=== PATIENT | female | born 1950 | race Caucasian/White ===

== ENCOUNTER → 2020-01-18 10:20 | Outpatient (BNVA) | payer MEDICARE, BC, SELFPAY | PROVIDERS: Visit Provider Family Medicine | DX: E03.9 Hypothyroidism, unspecified (principal) | CPT/HCPCS: 84443 ==

== ENCOUNTER → 2020-05-17 10:46 | Outpatient (BNVA) | payer MEDICARE, BC, SELFPAY | PROVIDERS: Visit Provider Family Medicine | DX: R53.83 Other fatigue (principal); E78.5 Hyperlipidemia, unspecified; F32.9 Major depressive disorder, single episode, unspecified; E03.9 Hypothyroidism, unspecified; Z79.899 Other long term (current) drug therapy | CPT/HCPCS: 80053; 80061; 82306; 82607; 84443; 85025 ==

== ENCOUNTER → 2020-09-20 11:45 | Outpatient (BNVA) | payer MEDICARE, BC, SELFPAY | PROVIDERS: Visit Provider Nurse Practitioner Family | DX: Z11.59 Encounter for screening for other viral diseases (principal); Z20.828 Contact with and (suspected) exposure to other viral communicable diseases; J06.9 Acute upper respiratory infection, unspecified | CPT/HCPCS: 87635 ==

== ENCOUNTER → 2021-04-05 09:11 | Outpatient (BNVA) | payer MEDICARE, BC, SELFPAY | PROVIDERS: Visit Provider Family Medicine | DX: E78.2 Mixed hyperlipidemia (principal); E03.9 Hypothyroidism, unspecified; I10 Essential (primary) hypertension | CPT/HCPCS: 80053; 80061; 84443; 85025 ==

== ENCOUNTER → 2021-10-23 13:16 | Outpatient (BNVA) | payer MEDICARE, BC, SELFPAY | PROVIDERS: Visit Provider Family Medicine | DX: E78.2 Mixed hyperlipidemia (principal); I10 Essential (primary) hypertension; R53.83 Other fatigue; E03.9 Hypothyroidism, unspecified | CPT/HCPCS: 80053; 80061; 82306; 84443; 85025 ==

== ENCOUNTER → 2022-01-23 08:47 | Outpatient (BNVA) | payer MEDICARE, BC, SELFPAY | PROVIDERS: Visit Provider Family Medicine | DX: E55.9 Vitamin D deficiency, unspecified (principal); E03.9 Hypothyroidism, unspecified; E78.5 Hyperlipidemia, unspecified; I10 Essential (primary) hypertension | CPT/HCPCS: 80053; 80061; 82306; 84443; 85025 ==

== ENCOUNTER → 2022-02-26 15:29 | Outpatient (BNVA) | payer MEDICARE, BC, SELFPAY | PROVIDERS: Visit Provider Nurse Practitioner Family | DX: M79.672 Pain in left foot (principal); M25.572 Pain in left ankle and joints of left foot; M84.475A Pathological fracture, left foot, initial encounter for fracture | CPT/HCPCS: 73610; 73630 ==

== ENCOUNTER 2022-03-05 13:36 | Outpatient (CLI) | payer MEDICARE, BC, SELFPAY ==
--- NOTE | 2022-03-05 13:44 | MM_ITS ---
WS: [email or web address] BILATERAL 3D TOMOSYNTHESIS DIGITAL SCREENING MAMMOGRAPHY WITH CAD CLINICAL INFORMATION: SCREENING HISTORY: Screening mammogram. No current complaints. COMPARISON: TECHNIQUE: Bilateral CC and MLO views. FINDINGS: The breasts are composed of heterogeneous fibroglandular density tissue, which can limit the detectio n of small underlying mass lesions. Punctate and lucent centered calcifications. No suspicious mass, asymmetry, calcifications, or architectural distortion. No evidence of malignancy. MM/[place] [id number] IMPRESSION: BI-RADS: 2-Benign FOLLOW UP: 1 Year Follow-up Recommend return to annual screening mammography.
== END 2022-03-05 13:37 | disposition home or self-care (01) ==
PROVIDERS: Visit Provider Family Medicine
DX: S92.352A Displaced fracture of fifth metatarsal bone, left foot, initial encounter for closed fracture (principal); W10.9XXA Fall (on) (from) unspecified stairs and steps, initial encounter; Z87.891 Personal history of nicotine dependence; Z12.31 Encounter for screening mammogram for malignant neoplasm of breast
CPT/HCPCS: 73630; 77063; 77067; 99204

== ENCOUNTER → 2022-03-27 08:17 | Outpatient (BNVA) | payer MEDICARE, BC, SELFPAY | PROVIDERS: Visit Provider Podiatrist Foot & Ankle Surgery | DX: S92.355D Nondisplaced fracture of fifth metatarsal bone, left foot, subsequent encounter for fracture with routine healing (principal); W10.9XXD Fall (on) (from) unspecified stairs and steps, subsequent encounter; Z87.891 Personal history of nicotine dependence | CPT/HCPCS: 73630; 99214 ==

== ENCOUNTER → 2022-06-27 09:14 | Outpatient (BNVA) | payer MEDICARE, BC, SELFPAY | PROVIDERS: Visit Provider Podiatrist Foot & Ankle Surgery | DX: W19.XXXD Unspecified fall, subsequent encounter (principal); S92.355D Nondisplaced fracture of fifth metatarsal bone, left foot, subsequent encounter for fracture with routine healing | CPT/HCPCS: 73630; 99214 ==

== ENCOUNTER → 2022-08-08 11:21 | Outpatient (BNVA) | payer MEDICARE, BC, SELFPAY | PROVIDERS: PCP Family Medicine; Visit Provider Podiatrist Foot & Ankle Surgery | DX: S92.355D Nondisplaced fracture of fifth metatarsal bone, left foot, subsequent encounter for fracture with routine healing (principal); W10.9XXD Fall (on) (from) unspecified stairs and steps, subsequent encounter | CPT/HCPCS: 73630; 99213; 99214 ==

== ENCOUNTER → 2022-08-16 08:33 | Outpatient (BNVA) | payer MEDICARE, BC, SELFPAY | PROVIDERS: PCP Family Medicine; Visit Provider Family Medicine | DX: I10 Essential (primary) hypertension (principal); E55.9 Vitamin D deficiency, unspecified; E03.9 Hypothyroidism, unspecified; E78.5 Hyperlipidemia, unspecified | CPT/HCPCS: 80053; 80061; 82306; 84443; 85025 ==

== ENCOUNTER 2022-09-03 11:39 | Outpatient (CLI) | payer MEDICARE, BC, SELFPAY | END 2022-09-03 11:40 | disposition home or self-care (01) | LOC: SPT 11:40 | PROVIDERS: PCP Family Medicine; Visit Provider Podiatrist Foot & Ankle Surgery | DX: Z46.89 Encounter for fitting and adjustment of other specified devices (principal); S92.355D Nondisplaced fracture of fifth metatarsal bone, left foot, subsequent encounter for fracture with routine healing; X58.XXXD Exposure to other specified factors, subsequent encounter | CPT/HCPCS: 97760; L3030 ==

== ENCOUNTER → 2022-11-21 09:50 | Outpatient (BNVA) | payer MEDICARE, BC, SELFPAY | PROVIDERS: PCP Family Medicine; Visit Provider Family Medicine | DX: E78.5 Hyperlipidemia, unspecified (principal); I10 Essential (primary) hypertension | CPT/HCPCS: 80061 ==

== ENCOUNTER → 2023-03-28 08:51 | Outpatient (BNVA) | payer MEDICARE, BC, SELFPAY | PROVIDERS: PCP Family Medicine; Visit Provider Family Medicine | DX: I10 Essential (primary) hypertension (principal); E55.9 Vitamin D deficiency, unspecified; R53.83 Other fatigue | CPT/HCPCS: 80053; 80061; 82306; 85025 ==

== ENCOUNTER 2023-04-08 10:11 | Outpatient (CLI) | payer MEDICARE, BC, SELFPAY ==
--- NOTE | 2023-04-08 10:22 | MM_ITS ---
WS: [email or web address] BILATERAL SCREENING DIGITAL TOMOSYNTHESIS MAMMOGRAM WITH CAD HISTORY: Z12.31 - Encounter for screening mammogram for malignant ... COMPARISON: 03/05/2022, 01/07/2015 and 06/28/2009 Bilateral CC and MLO views with tomosynthesis and synthetic mammography submitted. Computer aided det ection analyzed. Breast composition: The breasts are heterogeneously dense, which may obscure small masses. No suspici ous masses, microcalcifications or architectural distortion. Stable scattered calcifications. MM/[place] [id number] IMPRESSION: BI-RADS: 2-Benign FOLLOW UP: 1 Year Follow-up
== END 2023-04-08 10:12 | disposition home or self-care (01) ==
PROVIDERS: PCP Family Medicine; Visit Provider Family Medicine
DX: Z12.31 Encounter for screening mammogram for malignant neoplasm of breast (principal)
CPT/HCPCS: 77063; 77067

== ENCOUNTER → 2023-09-10 11:55 | Outpatient (BNVA) | payer MEDICARE, BC, SELFPAY | PROVIDERS: PCP Family Medicine; Visit Provider Family Medicine | DX: E03.9 Hypothyroidism, unspecified (principal); E55.9 Vitamin D deficiency, unspecified; E78.5 Hyperlipidemia, unspecified; N39.41 Urge incontinence; R56.9 Unspecified convulsions; E78.2 Mixed hyperlipidemia; Z23 Encounter for immunization | CPT/HCPCS: 80053; 80061; 82306; 84443; 85025 ==

== ENCOUNTER → 2024-04-28 08:17 | Outpatient (BNVA) | payer MEDICARE, SELFPAY | PROVIDERS: PCP Family Medicine; Visit Provider Family Medicine | DX: E78.2 Mixed hyperlipidemia (principal); E03.9 Hypothyroidism, unspecified | CPT/HCPCS: 80053; 80061; 84443; 85025 ==

== ENCOUNTER 2024-05-07 13:20 | Outpatient (CLI) | payer MEDICARE, SELFPAY ==
--- NOTE | 2024-05-07 13:30 | MM_ITS ---
WS: [email or web address] BILATERAL SCREENING DIGITAL TOMOSYNTHESIS MAMMOGRAM WITH CAD HISTORY: Z12.39 - Encounter for other screening for malignant neop... COMPARISON: 04/08/2023, 03/05/2022 Bilateral CC and MLO views with tomosynthesis and synthetic mammography submitted. Computer aided det ection analyzed. Breast composition: The breasts are heterogeneously dense, which may obscure small masses. No suspici ous masses, microcalcifications or architectural distortion. Stable benign calcifications in each arti ast. MM/[place] [id number] IMPRESSION: BI-RADS: 2-Benign FOLLOW UP: 1 Year Follow-up
== END 2024-05-07 13:21 | disposition home or self-care (01) ==
LOC: RAD 13:20
PROVIDERS: PCP Family Medicine; Visit Provider Family Medicine
DX: Z12.31 Encounter for screening mammogram for malignant neoplasm of breast (principal); R92.333 Mammographic heterogeneous density, bilateral breasts; R92.1 Mammographic calcification found on diagnostic imaging of breast
CPT/HCPCS: 77063; 77067; 80053; 80061; 84443; 85025

== ENCOUNTER → 2024-08-13 08:40 | Outpatient (BNVA) | payer MEDICARE, SELFPAY | PROVIDERS: PCP Family Medicine; Visit Provider Family Medicine | DX: E03.9 Hypothyroidism, unspecified (principal) | CPT/HCPCS: 80053; 80061; 84443; 85025 ==

== ENCOUNTER 2025-01-18 13:08 | Outpatient (CLI) | payer MEDICARE, SELFPAY ==
--- NOTE | 2025-01-18 13:45 | MR_ITS ---
WS: [email or web address] MRI RIGHT KNEE HISTORY: M25.569 - Pain in unspecified knee COMPARISON: Radiograph 01/18/2025 Anterior cruciate ligament: Intact. Posterior cruciate ligament: Intact. Medial collateral ligament: Intact. Posterior lateral corner structures: Intact. Medial menisci: Short segment increased T2 signal in the central body of the posterior horn. Additional blunting and signal abnormality in the posterior horn involving the superior articular surface close to the intercondylar notch. There is blunting of the meniscus and increased fluid signal. Lateral meniscus: Intact. Normal signal, size and shape. Extensor mechanism: Distal quadriceps tendon and patellar tendons are intact. Fluid and soft tissue: Very small joint effusion. No Hernandez's cyst. Osseous and articular structures: Patellofemoral compartment: Very slight lateral subluxation of the patella. No marrow edema or fracture. No full-thickness cartilage defects. Medial compartment: Minimal narrowing of the medial compartment. Increased fluid signal along the medial femoral condyle consistent with a full-thickness cartilage tear. This corresponds to the blunted surface of the meniscus. No fracture or marrow edema. Lateral compartment: Mild narrowing. No fracture. MR/MR knee RT wo con* [id number] IMPRESSION: 1. 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 There is very slight blunting involving the surfac e of the adjacent posterior horn of the medial meniscus. 2. Slight lateral subluxation of the patella. 3. No marrow edema or fracture.
== END 2025-01-18 13:09 | disposition home or self-care (01) ==
PROVIDERS: PCP Nurse Practitioner Family; Visit Provider Nurse Practitioner Family
DX: M25.561 Pain in right knee (principal); M94.261 Chondromalacia, right knee; S89.91XA Unspecified injury of right lower leg, initial encounter; X58.XXXA Exposure to other specified factors, initial encounter
CPT/HCPCS: 20610; 73560; 73565; 73721; 99205; J1100; J2795; J3301

== ENCOUNTER 2025-01-23 06:00 | Outpatient (RCR) | payer MEDICARE, SELFPAY | END 2025-02-22 23:59 | disposition home or self-care (01) | LOC: TPT 06:00 | PROVIDERS: Visit Provider Nurse Practitioner Family | DX: M43.16 Spondylolisthesis, lumbar region (principal) | CPT/HCPCS: 97161 ==

== ENCOUNTER 2025-01-28 09:34 | Outpatient (CLI) | payer MEDICARE, SELFPAY ==
--- NOTE | 2025-01-28 09:45 | XR_ITS ---
WS: [email or web address] XR hip RT 2-3V wo/w pel* [id number] REASON FOR EXAM: M25.551 - Pain in right hip FINDINGS: No fracture or focal bone lesion. Mild to moderate narrowing of the posterior inferior joint space. Moderate subchondral sclerosis and osteophytosis of the acetabulum. Mild osteophytosis of the femoral head. XR/XR hip RT 2-3V wo/w pel* [id number] IMPRESSION: Mild to moderate osteoarthritis of the right hip.
--- NOTE | 2025-01-28 09:45 | XR_ITS ---
WS: [email or web address] XR lumbar spine 2-3V* [id number] REASON FOR EXAM: S89.91XA - Unspecified injury of right lower leg, initial... FINDINGS: Mild straightening of the normal lordosis. No significant vertebral body compression deformity or focal vertebral body lesion. Mild vertebral body osteophytosis L1-S1. Mild narrowing of the L2-L3 disc space and more significantly in the L for L5 disc space. 4 mm of anterolisthesis of L4 on L5. XR/XR lumbar spine 2-3V* [id number] IMPRESSION: Lumbar degenerative spondylosis as above.
--- NOTE | 2025-01-28 09:45 | XR_ITS ---
WS: [email or web address] XR femur RT min 2V* [id number] REASON FOR EXAM: M25.551 - Pain in right hip FINDINGS: Right femur is intact from the hip joint to the knee joint. There is mild to moderate osteoarthritis of the right hip joint with mild to moderate joint space narrowing, subchondral sclerosis of the acetabulum and mild osteophytosis of the femoral head. XR/XR femur RT min 2V* [id number] IMPRESSION: No acute abnormality. Mild to moderate osteoarthritis of the hip.
== END 2025-01-28 09:35 | disposition home or self-care (01) ==
PROVIDERS: Absent Provider Orthopaedic Surgery; PCP Nurse Practitioner Family; Visit Provider Nurse Practitioner Family
DX: M16.11 Unilateral primary osteoarthritis, right hip (principal); M47.896 Other spondylosis, lumbar region; M79.604 Pain in right leg; M79.651 Pain in right thigh; S89.91XA Unspecified injury of right lower leg, initial encounter; R93.7 Abnormal findings on diagnostic imaging of other parts of musculoskeletal system
CPT/HCPCS: 72100; 73502; 73552

== ENCOUNTER → 2025-02-04 14:21 | Outpatient (BNVA) | payer MEDICARE, SELFPAY | PROVIDERS: PCP Nurse Practitioner Family; Visit Provider Orthopaedic Surgery | DX: M54.9 Dorsalgia, unspecified (principal); M43.16 Spondylolisthesis, lumbar region | CPT/HCPCS: 99204 ==

== ENCOUNTER 2025-02-09 07:51 | Outpatient (CLI) | payer MEDICARE, SELFPAY ==
--- NOTE | 2025-02-09 08:00 | MR_ITS ---
WS: [email or web address] MRI LUMBAR SPINE NONCONTRAST TECHNIQUE: Sagittal T1, T2 and STIR imaging. Axial T1 and T2 imaging. CLINICAL INFORMATION: Back Pain COMPARISON: MRI 2014 FINDINGS: Postoperative changes L4-5 are new compared to 2014. RIGHT hemilaminectomy defect. Progressed grade 1 anterolisthesis L4 on L5. No acute compression fractures. RIGHT paracentral extruded disc material L3-4 extending cephalad posterior to the L3 vertebral body is new from previous L1-L2: Normal. L2-L3: Mild annular bulging. Slight narrowing LEFT subarticular recess. Small bilateral foraminal protrusions with mild LEFT greater than RIGHT foraminal narrowing. This is progressed compared to previous. Mild central canal stenosis is progressed. L3-L4: RIGHT paracentral disc extrusion migrating posterior to the L3 vertebral body is new from previous. Moderate central canal stenosis. Impingement the RIGHT subarticular recess. Small RIGHT foraminal protrusion with impingement on the exiting RIGHT L3 nerve root with moderate RIGHT foraminal narrowing. Moderate facet arthropathy. LEFT foramen is patent. L4-L5: Slight anterolisthesis. Prior hemilaminectomy. Mild residual narrowing of the RIGHT greater than LEFT subarticular recess. Mild RIGHT greater than LEFT foraminal narrowing. Moderate facet arthropathy with small facet effusions. L5-S1: Mild annular bulge with osteophytic ridging. Advanced facet arthropathy. Foramen are patent. Visualized pelvic bony structures: Normal. Paravertebral soft tissues: Normal. Tiny amount of low signal material along the epidural venous plexus at T12 likely represents prominence of the epidural venous plexus in this area rather than disc material. This is unchanged since 2014 MR/MR lumbar spine wo con* [id number] IMPRESSION: 1. RIGHT paracentral extruded disc material L3-4 extending cephalad posterio r to the L3 vertebral body is new from previous. Impingement in the RIGHT subar ticular recess with moderate central canal stenosis. 2. Moderate RIGHT L3-4 foraminal narrowing with RIGHT foraminal protrusion. 3. Interval RIGHT hemilaminectomy L4-5 with mild residual central canal stenos is. Grade 1 anterolisthesis is new. Previously described RIGHT synovial cyst L4 -5 has been resected. 4. Advanced facet arthropathy L5-S1. 5. Annular bulging L2-3 with narrowing of the LEFT greater than RIGHT subartic ular recess and mild central canal stenosis. Mild LEFT foraminal narrowing.
== END 2025-02-09 07:52 | disposition home or self-care (01) ==
PROVIDERS: PCP Nurse Practitioner Family; Visit Provider Orthopaedic Surgery
DX: M51.26 Other intervertebral disc displacement, lumbar region (principal); M48.061 Spinal stenosis, lumbar region without neurogenic claudication; R93.7 Abnormal findings on diagnostic imaging of other parts of musculoskeletal system; Z98.890 Other specified postprocedural states; M71.38 Other bursal cyst, other site; M47.897 Other spondylosis, lumbosacral region; M51.369 Other intervertebral disc degeneration, lumbar region without mention of lumbar back pain or lower extremity pain; M96.89 Other intraoperative and postprocedural complications and disorders of the musculoskeletal system; M47.896 Other spondylosis, lumbar region; M51.379 Other intervertebral disc degeneration, lumbosacral region without mention of lumbar back pain or lower extremity pain; M25.78 Osteophyte, vertebrae
CPT/HCPCS: 72148

== ENCOUNTER → 2025-02-10 11:16 | Outpatient (BNVA) | payer MEDICARE, SELFPAY | PROVIDERS: PCP Nurse Practitioner Family; Visit Provider Nurse Practitioner Family | DX: M43.16 Spondylolisthesis, lumbar region (principal); M47.816 Spondylosis without myelopathy or radiculopathy, lumbar region; Z87.891 Personal history of nicotine dependence | CPT/HCPCS: 99214 ==

== ENCOUNTER → 2025-02-18 07:55 | Outpatient (BNVA) | payer MEDICARE, SELFPAY | PROVIDERS: Visit Provider Orthopaedic Surgery | DX: M43.16 Spondylolisthesis, lumbar region (principal); Z09 Encounter for follow-up examination after completed treatment for conditions other than malignant neoplasm | CPT/HCPCS: 36415; 80053; 81001; 85025; 99214 ==

== ENCOUNTER 2025-02-23 06:00 | Outpatient (RCR) | payer MEDICARE, SELFPAY | END 2025-03-24 23:59 | disposition home or self-care (01) | LOC: TPT 06:00 | PROVIDERS: Visit Provider Nurse Practitioner Family | DX: M43.16 Spondylolisthesis, lumbar region (principal) | CPT/HCPCS: 97110 ==

== ENCOUNTER 2025-03-17 07:12 | Day surgery (SDC) | payer MEDICARE, SELFPAY ==
[2025-03-17] VITALS (10 sets, daily range): BP systolic 100–146; BP diastolic 51–80; PULSE 72–105; RESP 12–26; TEMP 36.3–36.7; O2SAT 92–100; BMI 32.1
[2025-03-17] MEDS: sodium chloride 0.9% 1,000 ML 30 ML IV (08:03)
--- NOTE | 2025-03-17 08:23 | ANES.PREANE2 ---
Pre-Anesthetic Assessment Height/Weight: Height 5 ft 5 in Weight 193 lb Temp Pulse Resp BP Pulse Ox O2 Del Method 98.1 F 105 H 16 146/80 95 Room Air 03/17/25 07:41 03/17/25 07:41 03/17/25 07:41 03/17/25 07:41 03/17/25 07:41 03/17/25 07:41 Preop Diagnosis: Lumbar stenosis with neurogenic claudication Operation Date: 03/17/25 08:55 Proposed Procedures p Lumbar Spine Decompression Lumbar Decompression(Not Applicable) - Byron Morales, DO Was Beta Elvira taken within 24 hours: N/A Was Clonidine taken within 24 hours: N/A Last intake: Intake Last Liquid Date 03/16/25 Last Liquid Time 21:00 Last Solid Date 03/16/25 Last Solid Time 18:00 Social No alcohol and No tobacco Exam alert, oriented x 3, clear to auscultation bilaterally and regular rate & rhythm Airway Submandibular: within normal limits Cervical ROM: within normal limits Mallampati: Class III Dentition: full Anesthetic Plan ASA status: 2 Anesthesia: General Other: No prior issues with anesthesia N.p.o. since yesterday evening Patient has a history of 1 seizure 5 years ago. On chronic Keppra. Labs reviewed from 02/18/2025 unassessable for procedure EKG showing sinus rhythm Patient is able to perform all ADLs Plan for GETA Medications/Allergies Home Medications ?Medication ?Instructions ?Recorded ?Confirmed ?Last Taken ?Type Custom Molded Orthotics #1 ea 06/27/22 02/25/25 Unknown Rx levothyroxine 100 mcg tablet 100 mcg PO DAILY #90 tabs 08/18/24 03/16/25 03/16/25 Rx levetiracetam 500 mg tablet 500 mg PO BEDTIME 03/17/25 03/17/25 03/16/25 History oxybutynin chloride 15 mg 15 mg PO DAILY 03/17/25 03/17/25 03/16/25 History tablet,extended release 24 hr rosuvastatin 20 mg tablet 20 mg PO BEDTIME 03/17/25 03/17/25 03/16/25 History Allergies Allergy/AdvReac Type Severity Reaction Status Date / Time No Known Allergies Allergy Verified 02/25/25 12:52 Current Medications Generic Name Dose Route Start Last Admin Trade Name Freq PRN Reason Stop Dose Admin Sodium Chloride 1,000 mls @ 30 mls/hr 03/17/25 07:30 03/17/25 08:03 Sodium Chloride 0.9% IV 03/18/25 07:29 30 mls/hr .Q24H ARIE Administration PFSH Anesthesia Medical History Hypertension Anxiety History of melanoma Hypothyroidism Hyperlipidemia Social History Smoking and tobacco/nicotine status: former use of tobacco/nicotine (32 years ago) Quit status (tobacco/nicotine): has quit using Year quit tobacco: 1999 Second hand smoke exposure: No Alcohol intake: former Year of sobriety/quit date alcohol: quit Former alcohol use details: wine Substance/Drug Use: never Adopted: No Caregiver/support person: Yes Lives independently: Yes Household members: none Marital status: / service: No Current occupational status: retired Current gender identity: Female Special sissy needs: No Agree to transfusion: Yes Data Anesthesia Cardiac Studies: No Data to Display
--- NOTE | 2025-03-17 08:39 | W.PM.OPSUD ---
Surgery/Procedure H&P Update DATE OF PROCEDURE: March 17, 2025 DATE H&P PERFORMED: 02/18/25 H&P UPDATE INFORMATION: I have reviewed H&P completed within last 30 days, I have examined patient prior to procedure and No changes to prior documentation PREOP DIAGNOSIS: Lumbar stenosis with neurogenic claudication PLANNED PROCEDURE: Operation Date: 03/17/25 08:55 Proposed Procedures p Lumbar Spine Decompression Lumbar Decompression(Not Applicable) - Byron Morales DO
[2025-03-17] MEDS: ceFAZolin 2,000 mg SDV 2000 MG IVP (08:56)
[2025-03-17] MEDS: lidocaine-epi 1% 20 mL INJ 10 ML INJECTION (09:34)
--- NOTE | 2025-03-17 10:23 | PM.OP ---
Operative Report Date of procedure: March 17, 2025 Pre-op diagnosis: L3-4 posterior disc herniation with radiculopathy Post-op diagnosis: same Procedure done: Right L3-4 laminectomy with partial facetectomy and discectomy Surgeon: Byron Morales DO Estimated blood loss (mL): 10 Procedure: Right L3-4 laminectomy with partial facetectomy and discectomy Patient is brought to the operative suite. After undergoing anesthesia they are placed in the prone position. All areas of impingement are well padded. Patient is then prepped and draped in the normal sterile fashion. A skin incision is made over the L3-4 level. This is confirmed under c-arm guidance. A series of dilators are passed and the tubular retractor is docked on the L3 lamina. A bovie is used to clear the soft tissue off the lamina and the L 3/4 facet joint. A high speed мария is then used to perform the laminectomy and take down the medial aspect of the L 3/4 facet joint. A kerrison rongeure was then used to take down the remaining lamina and smooth the edge of the laminectomy up to the point where the ligamentum flavum attaches. Attention was then brought to the medial aspect of the facet joint. The remaining medial aspect of the superior and inferior aspect of the facet joint were taken down with the kerrison from the pedicle of L3 to L 4. The facet joint had significant hypertrophy. Attention was then brought to the Ligamentum Flavum. The ligament was taken down from the lamina of L3 to L4 and out medially to the remaining facet joint. The ligament was thick. The dura was then exposed. The dura was in good repair. The L3 nerve root was reflected medially. Disc herniation was identified. Sharp knife was used to open up the annulus and scar tissue where the extruded disc fragment was curved curette is used to tease it out micropituitary was used to remove fragments. And then the space was irrigated. Smaller fragments were removed. The L3 nerve was then traced with a curette out the L3/4 foramen and found to be adequately decompressed. The L4 nerve was traced with a curette around the L4 pedicle. The lateral recess was opened with a kerrison helping to further decompress the L4 nerve. Wound is then irrigated copiously with saline and surgiflo is used to stop any bleeding. The tubular retractor is removed and the wound is closed with vicryl and monocryl suture. Glue is then used to protect the wound. A sterile dressing is then placed. Patient was then placed in the supine position and transferred to the PACU in stable condition.
--- NOTE | 2025-03-17 12:24 | XR_ITS ---
WS: [email or web address] Exam: XR lumbar spine 1V [id number] Date/Time of Exam: 03/17/2025 12:24 PM Reason For Exam: OR PIC, DECOMPRESSION AP and lateral C arm images of the lower lumbar spine are submitted. The images were obtained for preoperative localization purposes.
--- NOTE | 2025-03-17 14:15 | ANE.PACU2 ---
Inpatient post-anesthesia follow up: Airway intact: Yes Vital signs: Temperature 98 F Pulse Rate 72 Respiratory Rate 16 Blood Pressure 100/65 Pulse Oximetry 97 Oxygen Delivery Me thod Room Air Oxygen Flow Rate 8 Fraction of Inspir ed Oxygen Hydration adequate: Yes Nausea and vomiting: No Pain level: 1 Mental status: Baseline
== END 2025-03-17 12:10 | disposition home or self-care (01) ==
PROVIDERS: PCP Nurse Practitioner Family; Visit Provider Orthopaedic Surgery
PROC: (CPT 63005; principal; 2025-03-17 08:35)
DX: M51.16 Intervertebral disc disorders with radiculopathy, lumbar region (principal); M43.16 Spondylolisthesis, lumbar region; I10 Essential (primary) hypertension; Z79.899 Other long term (current) drug therapy; Z79.890 Hormone replacement therapy; Z87.891 Personal history of nicotine dependence
CPT/HCPCS: 63030; 72020; 76000; J0131; J0690; J1100; J1171; J2371; J2405; J2704; J3010; J3490; J7030; J9999

== ENCOUNTER → 2025-03-30 13:30 | Outpatient (BNVA) | payer MEDICARE, SELFPAY | PROVIDERS: PCP Nurse Practitioner Family; Visit Provider Orthopaedic Surgery | DX: Z98.890 Other specified postprocedural states (principal) | CPT/HCPCS: 99024 ==

== ENCOUNTER → 2025-04-27 12:47 | Outpatient (BNVA) | payer MEDICARE, SELFPAY | PROVIDERS: PCP Nurse Practitioner Family; Visit Provider Orthopaedic Surgery | DX: Z98.890 Other specified postprocedural states (principal) | CPT/HCPCS: 99024 ==

== ENCOUNTER → 2025-06-08 07:45 | Outpatient (BNVA) | payer MEDICARE, SELFPAY | PROVIDERS: PCP Nurse Practitioner Family; Visit Provider Orthopaedic Surgery | DX: Z98.890 Other specified postprocedural states (principal) | CPT/HCPCS: 99024 ==

== ENCOUNTER → 2025-07-19 13:56 | Outpatient (BNVA) | payer MEDICARE, SELFPAY | PROVIDERS: PCP Nurse Practitioner Family; Visit Provider Nurse Practitioner Family | DX: E78.2 Mixed hyperlipidemia (principal); F32.9 Major depressive disorder, single episode, unspecified; I10 Essential (primary) hypertension | CPT/HCPCS: 80053; 80061; 84443; 85025 ==